=== PATIENT | male | born 1945 | race Asian ===

== ENCOUNTER 2016-12-26 16:00 | Outpatient (RCR) | payer OTHER | END 2016-12-27 | disposition home or self-care (01) | LOC: PTY 16:00 | DX: M54.2 Cervicalgia (principal); G89.29 Other chronic pain ==

== ENCOUNTER 2017-01-13 08:30 | Outpatient (RCR) | payer OTHER | END 2017-01-26 | disposition home or self-care (01) | LOC: PTY 08:30 | DX: M54.2 Cervicalgia (principal); G89.29 Other chronic pain | CPT/HCPCS: 97110; 97140; G0283 ==

== ENCOUNTER 2017-02-17 08:30 | Outpatient (RCR) | payer OTHER | END 2017-02-26 | disposition home or self-care (01) | LOC: PTY 08:30 | DX: M54.2 Cervicalgia (principal); G89.29 Other chronic pain | CPT/HCPCS: 97110; 97140; G0283 ==